=== PATIENT | male | born 1980 | race Caucasian/White ===

== ENCOUNTER 2019-08-04 12:56 | Outpatient (CLI) | payer OTHER ==
[2019-08-04 13:27] VITALS: BP 100/60
--- NOTE | 2019-08-04 13:27 | SLEEP CARE CONSULTATION ---
Information from patient questionnaire entered by Deann Walter. I have reviewed and concur with the information entered by Deann Walter. This document represents the service I personally performed and the decisions made by me, Guerline Espino MD, [facility]. History of Present Illness Reason for Visit: New patient Chief Complaint: reports: Snoring, Excessive daytime sleepiness (always tired, even after sleeping at night), Observed pauses in breathing, Fatigue Duration of Symptoms: 3-4 YEARS Usual bedtime: [id number] Time it takes to fall asleep: 10-20 Snores at night: Yes Observed to quit breathing while asleep: Yes Sleeps alone due to snoring: No Number of times waking at night: 1-2 Reasons for waking at night: reports: Snoring, Bathroom, Other (RECENTLY, BABY) Toss, Turn, or Twitch while sleeping: No Recalls having dreams: Yes (SOMETIMES) Usually gets out of bed at: 0530 WEEKDAY [id number] WEEKEND Feels refreshed in the morning: No Morning headache: Yes (RARELY) Sleepy or fatigued during the day: Yes Ever fallen asleep while driving: Yes (DOZED OFF) Takes day naps: Yes (RARELY) Dreams during day naps: No Prior sleep studies: No Additional HPI information: I had the pleasure of seeing Mr. Dobbs today regarding the possibility of him having a sleep disorder. As you know, he is a 38 year old gentleman who complains of loud snore, observed apneas, unrefreshed sleep, persistent fatigue, and excessive daytime sleepiness. He has awakened occasionally because of his own snoring, choking, and having to gasp for air. He complains of excessive daytime sleepiness and has fallen asleep while driving. 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 Patient is and lives in [place]. Have you smoked in the past 12 months: Yes Cigarettes per day (20/pack): 15 (10-20) Years of smokin Quit date: 1997 Smoking Pack Years: 6.3 Alcohol use: Yes Alcohol amount and frequency: 1-2 DRINKS, 1-2 NIGHTS/WEEK Caffeine use: Yes Caffeine amount and frequency: 1-2 CUPS COFFEE/MORNING Family History Family history of sleep disordered breathing: No Allergies and Home Medications Drug allergies reviewed: Yes Home medication list reviewed: Yes Review of Systems Cardiovascular: denies: high blood pressure, palpitations, chest pain, irregular heart rate or pulse, leg or foot swelling, have to sleep sitting up, other Respiratory: denies: shortness of breath, wheeze, sputum production, chronic cough, other Gastrointestinal: denies: heartburn, difficulty swallowing, nausea, vomitting, diarrhea, abdominal pain, other Urinary: denies: incontinence, frequency, urgency, impotence, other Neurological: denies: headaches, seizure, head trauma, disorientation, speech dysfunction, gait or balance problems, fainting or unconsciousness, other Psychiatric: denies: Attention Deficit Hyperactivity, anxiety, depression, mood disorder, claustrophobia, other Ear/Nose/Throat: reports: nasal congestion, wisdom teeth removed Endocrine: denies: thyroid disease, history of goiter, sluggishness, too hot or cold, excessive thirst, increased appetite, increased urination, unexplained weakness, other Musculoskeletal: denies: joint pain, neck pain, back pain, joint swelling, muscle pain or cramping, mobility problems, other Immunologic: denies: sneezing, rash, itching, allergies to food or environment, other Physical Exam Vital signs obtained and entered by: Dr. Espino Blood Pressure: 100/60 Heart Rate: 66 O2 Saturation: 99 Height: 5 ft 7 in Weight (kg): 180 lb Body Mass Index: 28.1 BMI Classification: Overweight Neck circumference: 16 Mood/affect: normal HEENT: No craniofacial malformation Nostrils: patent to airflow Turbinates: normal Septum: midline Mouth and throat: narrow oropharynx Soft palate: long Hard palate: normal Uvula: normal Uvula visualization: 50% Mallampati Class II Tongue: normal in size Tonsils: small Chin and jaw: normal size and position Neck: normal w/o lymphadenopathy or thyromegaly Heart: regular rate and rhythm Lungs: clear bilaterally Abdomen: soft, non-tender Extremities: no edema or clubbing Neurologic: intact, no focal deficits Impression and Plan IMPRESSION: 1. Obstructive Sleep Apnea-Hypopnea Syndrome, as suggested by history of loud and irregular snoring, observed cessation of breath while asleep, frequent awakenings during the night, unrefreshed sleep, cognitive impairment, and daytime hypersomnolence. Narrow oropharynx and obesity are common predisposing factors for obstructive sleep apnea-hypopnea syndrome. Pathophysiology of sleep-disordered breathing was discussed. I recommend proceeding to polysomnography to confirm the diagnosis and to assess severity. If he has significant sleep disordered breathing, a manual CPAP titration study will also be performed to find the optimal treatment pressure. I informed the patient of what the sleep studies involve and after some discussion, he agreed to proceed. Plan: 1. Schedule polysomnography + manual CPAP titration study and return in 1 to 2 weeks after the study to discuss result and initiate therapy. 2. Avoid long distance driving or when feeling sleepy. 3. Avoid alcohol, sedative and muscle relaxant around bedtime. 4. Attempt to lose some weight. I spent 100% of this 15 minute visit face to face with the patient with greater than 50% of this was spent time counseling the patient and coordination of care.
== END 2019-08-04 12:57 | disposition home or self-care (01) ==
LOC: SC 12:56
PROVIDERS: ATTEND Internal Medicine Pulmonary Disease
DX: R06.83 Snoring (principal); R06.81 Apnea, not elsewhere classified; G47.8 Other sleep disorders; R41.89 Other symptoms and signs involving cognitive functions and awareness; G47.10 Hypersomnia, unspecified
CPT/HCPCS: 99203; 99212

== ENCOUNTER 2019-08-25 19:33 | Outpatient (CLI) | payer OTHER | END 2019-08-25 19:34 | disposition home or self-care (01) | LOC: SC 19:33 | PROVIDERS: ATTEND Internal Medicine Pulmonary Disease | DX: G47.33 Obstructive sleep apnea (adult) (pediatric) (principal) | CPT/HCPCS: 95810 ==

== ENCOUNTER 2019-09-21 12:52 | Outpatient (CLI) | payer OTHER ==
[2019-09-21 13:49] VITALS: BP 112/64
--- NOTE | 2019-09-21 13:49 | SLEEP CARE CONSULTATION ---
Information from patient questionnaire entered by Pam Hodge. I have reviewed and concur with the information entered by Pam Hodge. This document represents the service I personally performed and the decisions made by me, Angle Leung, RN, MSN, MEDIA/INSTRUCTIONAL DESIGNER. History of Present Illness Initial [place] Sleepiness Scale score: 7 Current [place] Sleepiness Scale score: 9 Additional HPI information: DAVID PAULA returns for follow up of the recently performed polysomnography and informed of findings. I explained the pathophysiology behind obstructive sleep apnea. We then spent quite a bit of time discussing different treatment options. For mild obstructive sleep apnea, surgery and oral appliance are alternatives to nasal CPAP therapy but in moderate or severe cases, nasal CPAP is the most effective and reliable treatment. I answered his many questions about differences in therapy. Because apnea is primarily in supine position, then positional management therapy could be effective. Methods discussed such as positioning with pillows, using a T-shirt with tennis balls in the back, and shown commercial products that have a pillow format on back to prevent supine sleep. I reviewed the impact of weight changes on sleep apnea and strongly recommended losing weight. After some discussion, the patient opted to go with the nasal CPAP therapy. Nasal autoCPAP set at [id number] will be ordered with rationale explained. A manual titration study will be ordered if unable to find optimal pressure with office adjustments. I explained how CPAP machine works with sample devices Respironics Dreamstation and ResMed [id number] and what to expect when using the machine. Using CPAP every night in order to get used to it was emphasized. Patient advised to put CPAP mask on before getting into bed so as not to fall asleep without CPAP. To assist acclimation to CPAP use, it could also be used for a short time during day while reading or watching TV. The patient was instructed to call the CPAP supplier to discuss any mechanical problem that may occur. If the mask given is uncomfortable or is difficult to keep on through the night even with adjustment, contact the CPAP supplier as many will replace with another mask style if notified before 30 days. If snoring or perceives is not getting enough air or too much air from the machine, notify this office. [facility] patient education PAP tips reviewed and given to patient. He prefers the Respironics device. Patient counseled not drink alcohol less than 4 hours before bedtime as it can increase snoring and apnea. Patient was cautioned about risks of drowsy driving until sleepiness symptoms resolve. Patient denies drowsy driving. [facility] patient education on snoring and sleep apnea given and reviewed. Sleep Study - Polysomnography Polysomnography findings: The quality of the study is good. The patient had normal sleep efficiency. Except for mild sleep fragmentation, the sleep architecture was normal. Respiratory monitoring showed mild obstructive sleep apneahypopnea (AHI = 5.4) associated with frequent arousals, oxyhemoglobin desaturation and mild hypoxia (celina oxygen saturation of 87%). The slept mostly in non-supine positions (supine AHI = 16.7; non-supine = 4.65). Snore was light to loud in intensity. There was no significant periodic leg movement of sleep. Cardiac rhythm was normal sinus rhythm without significant arrhythmia. No abnormal behavior (parasomnia) observed during the night. Allergies and Home Medications Known drug allergies: No Home medication list reviewed: No (no meds) Review of Systems Review of systems same as previous: No (vasectomy) Physical Exam Blood Pressure: 112/64 Cuff size: long Heart Rate: 68 O2 Saturation: 98 Height: 5 ft 7 in Weight: 189 lb 6.4 oz (with boots and fatigues ) Body Mass Index: 29.6 BMI Classification: Overweight Impression and Plan * 1. Obstructive sleep apnea- hypopnea syndrome,mild, with lowest oxygen saturation of 87%. Possibly this is the cause of the patients symptoms of unrefreshed sleep, and excessive daytime sleepiness. As mentioned above, the patient will be started on nasal autoCPAP therapy with pressure set at 4-15 cmH2 O. A manual titration study will be completed if unable to find optimal treatment pressure with office adjustments. Compliance guidelines also reviewed. A copy of compliance guidelines will be given for reference at check out. Because the apnea is more severe supine, I instructed to avoid sleeping supine using pillow positioning until able to start CPAP use. Nasal auto CPAP therapy, pressure at 4-15 cm H2O - Respironics preferred * Attempt to lose weight. * Avoid alcohol consumption near bedtime. * Avoid supine sleep until using CPAP. * The patient is again cautioned about driving until sleepiness completely resolves. * Return one month after CPAP obtained. I will assess response to therapy and c ompliance at that time. I spent 100% of this 40 minute visit face to face with the patient with greater than 50% of this was spent time counseling the patient and coordination of care.
== END 2019-09-21 12:53 | disposition home or self-care (01) ==
LOC: SC 12:52
PROVIDERS: ATTEND Nurse Practitioner Family
DX: G47.33 Obstructive sleep apnea (adult) (pediatric) (principal)
CPT/HCPCS: 99212; 99214

== ENCOUNTER 2019-11-23 13:01 | Outpatient (CLI) | payer OTHER ==
--- NOTE | 2019-11-23 14:10 | SLEEP CARE CONSULTATION ---
Information from patient questionnaire entered by Pam Hodge. I have reviewed and concur with the information entered by Pam Hodge. This document represents the service I personally performed and the decisions made by me, Guerline Espino MD, [facility]. History of Present Illness Previous diagnosis: Mild, Obstructive Sleep Apnea-Hypopnea Syndrome AHI: 5.4 Reason for follow up: first compliance Equipment type: CPAP Equipment obtained from: [employer] Mask style: Full face HPI additional information: HPI: Mr. Dobbs returned today for follow up of nasal CPAP therapy. He was diagnosed to have mild obstructive sleep apnea-hypopnea syndrome (AHI was 5.4). The patient wears a full face mask by [employer] (he did not have a manual CPAP/BiPAP titration study). He reports using the device only occasionally because the mask hurts his nose. The compliance report shows usage in 15 nights out of the past 30 nights, averaging 3.1 hours a night. The > 4 hour compliance rate for the past 30 days is 7%. He complained of no particular problem with the device such as soreness on the face, dry nose, epistaxis, nasal congestion or headache. He thinks that the pressure of 4 15 cmH2O is alright. When he could use the CPAP for more than 4 hours, he noticed improvement in his sleep quality, and that he woke up feeling fresher in the morning and more awake/alert during the day. [place] Sleepiness Scale score is 8. His notices no snore at all. The average residual AHI is 2.4; and average time in large leak per day is 0. The 90th percentile pressure is 5.8 cmH2O. Subjective Initial [place] Sleepiness Scale score: 7 Current [place] Sleepiness Scale score: 8 Allergies and Home Medications Drug allergies reviewed: Yes Home medication list reviewed: Yes Physical Exam Weight: 180 lb Impression and Plan IMPRESSION: 1. Obstructive Sleep Apnea-Hypopnea Syndrome, mild, with the patient having [id number] compliance due to poor mask fit. He reports some improvement on the treatment and would like to try it longer. I will order a manual CPAP/BiPAP titration study to find the optimal pressure setting and find a better mask for him. PLAN: 1. Continue with autoCPAP set at 4 - 15 cmH2O. 2. Schedule a manual CPAP/BiPAP titration study. 3. Return for follow up after the sleep study. I spent 100% of the 15 minute visit [id number] with the patient with greater than 50% of this was spent time counseling the patient and coordination of care.
== END 2019-11-23 13:02 | disposition home or self-care (01) ==
LOC: SC 13:01
PROVIDERS: ATTEND Internal Medicine Pulmonary Disease
DX: G47.33 Obstructive sleep apnea (adult) (pediatric) (principal)
CPT/HCPCS: 99212; 99213

== ENCOUNTER 2019-12-14 19:42 | Outpatient (CLI) | payer OTHER | END 2019-12-14 19:43 | disposition home or self-care (01) | LOC: SC 19:42 | PROVIDERS: ATTEND Internal Medicine Pulmonary Disease | DX: G47.33 Obstructive sleep apnea (adult) (pediatric) (principal) | CPT/HCPCS: 95811 ==

== ENCOUNTER 2019-12-28 10:52 | Outpatient (CLI) | payer OTHER ==
--- NOTE | 2019-12-28 12:18 | SLEEP CARE CONSULTATION ---
Information from patient questionnaire entered by Deann Walter. I have reviewed and concur with the information entered by Deann Walter. This document represents the service I personally performed and the decisions made by me, Guerline Espino MD, [facility]. History of Present Illness Previous diagnosis: Mild, Obstructive Sleep Apnea-Hypopnea Syndrome AHI: 5.4 Reason for follow up: with manual titration Equipment type: CPAP Equipment obtained from: [employer] Prior sleep studies: Yes HPI additional information: HPI: Mr. Dobbs returns for follow up of the sleep study (a manual CPAP titration study) he had on 12/14/19. The study showed that CPAP was initiated at 4 cmH2O and titrated up to CPAP at 6 cmH2O. CPAP at 6 cmH2O appeared to be optimal (AHI of 0 per hour on the pressure). There was supine REM sleep on the pressure. Oxygen saturation was normal throughout the night. Lower CPAP settings appeared adequate as well. The patient tolerated positive airway pressure therapy very well. The patients sleep efficiency was normal. The sleep architecture was relatively normal considering the first-night effect. There was no significant periodic leg movement of sleep. Cardiac rhythm was normal sinus rhythm without significant arrhythmia. No abnormal behavior (parasomnia) observed during the night. The patient was informed of these findings. I explained to him that the current pressure is too high. Presently his CPAP is set at 4 - 15 cmH2O. He told me that he has not been using the device much. CPAP Compliance Data - Data Reviewed with Patient Average duration of nightly device use: 2h 57m Compliance rate %: 5 Current pressure setting (cmH2O): 4-15 Humidity settin Heated hose settin Average residual AHI: 2.6 Average large leak: 0s Subjective Patient concerns: reports: air blowing in eyes, dry mouth, nose, throat Current pressure setting perceived as: comfortable Initial [place] Sleepiness Scale score: 7 Current [place] Sleepiness Scale score: 7 Allergies and Home Medications Drug allergies reviewed: Yes Home medication list reviewed: Yes Review of Systems Review of systems same as previous: Yes Physical Exam Height: 5 ft 7 in Weight: 180 lb Body Mass Index: 28.1 BMI Classification: Overweight Impression and Plan IMPRESSION: 1. Obstructive Sleep Apnea-Hypopnea Syndrome, mild, adequately controlled with low CPAP at 6 cmH2O. The patient is presently not using his CPAP because of upper respiratory congestion. I advised him to turn up the heated humidifier. He likes the Respironics Wisp nasal mask that we gave him and will tell [employer] not to send him the full face mask supplies. PLAN: 1. Reduce autoCPAP to 4 6 cmH2O. 2. Attempt to lose weight and avoid alcohol consumption near bedtime. 3. Try ResMed N30i mask 4. Return in six weeks for follow up. I will assess his response and compliance at that time. I spent 100% of this visit face to face with the patient with greater than 50% of this was spent time counseling the patient and coordination of care.
== END 2019-12-28 10:53 | disposition home or self-care (01) ==
LOC: SC 10:52
PROVIDERS: ATTEND Internal Medicine Pulmonary Disease
DX: G47.33 Obstructive sleep apnea (adult) (pediatric) (principal); E66.3 Overweight; Z68.28 Body mass index [BMI] 28.0-28.9, adult
CPT/HCPCS: 99212; 99213

== ENCOUNTER 2021-07-20 08:43 | Outpatient (CLI) | payer OTHER ==
--- NOTE | 2021-07-20 09:18 | SLEEP CARE CONSULTATION ---
Information from patient questionnaire entered by Pam Hodge. I have reviewed and concur with the information entered by Pam Hodge. This document represents the service I personally performed and the decisions made by , Eun Armando ARNP. History of Present Illness Service Date and Time: 07/20/2021 0843 Previous diagnosis: Mild, Obstructive Sleep Apnea-Hypopnea Syndrome AHI: 5.4 (in 2019) Reason for follow up: annual (last seen 05/2020) Equipment type: CPAP Equipment obtained from: [employer] (getting supplies as needed) Mask style: Nasal Mask brand: Respironics (Wisp) Backup mask available: Yes (Old mask) Last cushion change: 2+ months Prior sleep studies: Yes Year and Where: 2019 - [facility] HPI additional information: DAVID PAULA was diagnosed to have mild, AHI 5.4, obstructive sleep apnea- hypopnea syndrome and returned today for CPAP therapy annual follow-up. CPAP Compliance Data - Data Reviewed with Patient Average duration of nightly device use: 6 hr 2 min Compliance rate %: 77.2 (180 days) Current pressure setting (cmH2O): 4-6 Humidity settin Heated hose settin Average residual AHI: 1.7 Average large leak: 0 Subjective Missed days of use due to: reports: travel, other (Machine concerns) Patient concerns: reports: mask leak noise, nasal congestion, dry mouth, nose, throat, epistaxis (occasional). denies: aerophagia, mask discomfort, air blowing in eyes, condensation in mask/hose, other Observed to snore while using device: No Current pressure setting perceived as: comfortable (b) On therapy, patient: reports: sleeping better, awakening more refreshed, being more awake and alert during the day, more rested overall. denies: drowsiness while driving Initial [place] Sleepiness Scale score: 7 (in 2019) Current [place] Sleepiness Scale score: 8 Allergies and Home Medications Home medication list reviewed: Yes (Adderall, started in December) Review of Systems Review of systems same as previous: No (ADHD) Physical Exam Heart Rate: 68 O2 Saturation: 96 Height: 5 ft 7 in Weight: 182 lb Body Mass Index: 28.5 BMI Classification: Overweight Impression and Plan 1. Obstructive Sleep Apnea-Hypopnea Syndrome, mild, with good treatment compliance and good apnea control. On CPAP therapy, the patient has better sleep quality and is more rested overall. Patient stopped using his device about 2 weeks ago due to travel and because of concerns about the recall on his device. He has not registered his device. Patient was encouraged to register their device online with [employer] for the recall to see if their device is affected. If their device is affected they should start a claim. Patient denies any black particles seen in machine or hoses, any unusual odors coming from device. Patient has not experienced any physical symptoms such as upper airway irritation, headache, skin or eye irritation, asthma, nausea/vomiting, difficulty breathing or chest pain. Patient informed that they may use an inline CPAP filter that they can obtain online to reduce chance of any particles being inhaled or ingested. We discussed thoroughly the health risks of not using the CPAP versus continuing use with the filter in place. If patient is not able to sleep due to waking up choking, gasping for air or other respiratory distress that they may decide to continue using it until it is either replaced or repaired. Patient voiced understanding and agreement with plan. Patient encouraged to maintain a healthy weight and to lose weight if overweight. Patient's apnea severity and rationale for treatment to reduce apnea, improve sleep quality and reduce cardiovascular and cerebrovascular events was reviewed. * Patient will register his device with [employer] for recall * Change auto CPAP pressure to 5-7 cmH2O * Notify me if snoring with mask or feeling that the pressure is too much or too little * Attempt to lose weight * Call this office if any problems using CPAP * Return for follow up in 1 year, or sooner if concerns arise Counseling Topics: Spare mask, Weight loss health impact Visit Type: In Office Time Spent with Patient (minutes): 24 Provider Statement: I spent 100% of the Face to Face Visit with the patient with greater than 50% spent counseling the patient and coordination of care.
== END 2021-07-20 08:44 | disposition home or self-care (01) ==
LOC: SC 08:43
PROVIDERS: ATTEND Nurse Practitioner Family
DX: G47.33 Obstructive sleep apnea (adult) (pediatric) (principal)
CPT/HCPCS: 99212; 99213

== ENCOUNTER 2023-01-25 10:19 | Outpatient (CLI) | payer OTHER ==
--- NOTE | 2023-01-25 16:44 | MRI Report ---
PROCEDURE: SHOULDER WO - RT INDICATIONS: SHOULDER PAIN TECHNIQUE: Noncontrast oblique coronal T2 fast spin echo with fat saturation, oblique sagittal T1 spin echo and T2 fast spin echo with fat saturation, axial T1 spin echo and T2 fast spin echo with fat saturation t hrough the shoulder. COMPARISON: None. FINDINGS: Image quality: Excellent. Rotator cuff: Low to moderate grade articular and bursal surface partial-thickness tear involving dis lyle supraspinatus at its insertion on humeral head is seen extending to muscular tendinous junction. Tendinosis and low-grade articular surface partial-thickness tear involving distal infraspinatus is s een. Low-grade intrasubstance partial thickness tear involving distal subscapularis is noted. No full -thickness rotator cuff tendon rupture.. No significant rotator cuff muscle atrophy on sagittal imag es. Bones and bursae: Moderate acromioclavicular joint osteoarthritic changes are seen with joint space n arrowing, subchondral sclerosis and edema and prominent downward osteophyte formation depressing on m usculotendinous junction of supraspinatus. Mild glenohumeral joint osteoarthritic changes are seen. N o fracture or dislocation. Nonspecific subcortical cystic areas are seen scattered in anterior, later al and posterior aspect of humeral head near rotator cuff tendon insertion. There is small to moderat e amount of joint effusion and subacromial subdeltoid bursal fluid. No gross loose bodies. Capsule and soft tissues: There is subtle signal abnormality and contour irregularity involving super ior anterior labrum at 12 to 1:00 position suggestive of superior anterior labral tear. The long head of the biceps tendon appears thickened with intrasubstance T2 hyperintense signal. The rotator inte rval appears normal, without fibrosis. The coracohumeral ligament is normal in thickness. IMPRESSION: 1. Low to moderate grade articular and bursal surface partial-thickness tear involving distal suprasp inatus extending to muscular tendinous junction. Low-grade articular surface partial-thickness tear i nvolving distal infraspinatus. Low-grade intrasubstance partial thickness tear involving distal subsc apularis. No full-thickness rotator cuff tendon rupture. No significant rotator cuff muscle atrophy. 2. 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 No fra cture or dislocation. Nonspecific subcortical cystic areas in humeral head near rotator cuff tendon i nsertion. Small to moderate amount of joint effusion and subacromial subdeltoid bursal fluid. No rivka s loose bodies. 3. Suggestion of subtle superior anterior labral tear at 12 to 1:00 position. 4. Low to moderate grade partial thickness tear involving proximal long head of biceps tendon. Reviewed by: Krish Steen MD on 01/25/2023 4:43 PM PST Approved by: Krish Steen MD on 01/25/2023 4:43 PM PST Station ID: [id number]
== END 2023-01-25 10:20 | disposition home or self-care (01) ==
LOC: DI 10:19
PROVIDERS: ATTEND Student in an Organized Health Care Education/Training Program
DX: M75.111 Incomplete rotator cuff tear or rupture of right shoulder, not specified as traumatic (principal); M19.011 Primary osteoarthritis, right shoulder; S46.111A Strain of muscle, fascia and tendon of long head of biceps, right arm, initial encounter

== ENCOUNTER 2023-04-15 12:24 | Outpatient (CLI) | payer OTHER ==
[~2023-04-15 12:24] MED LIST: BUPIVACAINE 0.5% PF 10 ML VIAL ONE; LIDOCAINE-MPF 1% 5 ML VIAL ONE; TRIAMCINOLONE 40 MG/ML VIAL ONE; iohexoL-240 10 ML VIAL IVP ONE
[2023-04-15] MEDS ORDERED: BUPIVACAINE 0.5% PF 10 ML VIAL IM ONE (13:19)
[2023-04-15] MEDS ORDERED: iohexoL-240 10 ML VIAL IVP ONE (13:20)
[2023-04-15] MEDS ORDERED: LIDOCAINE-MPF 1% 5 ML VIAL TD ONE (13:20)
[2023-04-15] MEDS ORDERED: TRIAMCINOLONE 40 MG/ML VIAL IM ONE (13:21)
--- NOTE | 2023-04-15 13:41 | XRAY Report ---
PROCEDURE: Inj/Aspiration Major Joint INDICATIONS: PAIN IN RIGHT SHOULDER CONTRAST: Intra-articular FLUORO TIME: 01/25/2023 TECHNIQUE: The indications, alternatives, benefits, risks, and complications of the procedure were explained to the patient. Written informed consent was obtained and placed in the chart. The patient was placed in an appropriate position on the fluoroscopy table, and a site was chosen for percutaneous access un killian fluoroscopic guidance. Local anesthetic was administered using a 1% lidocaine solution. A hypod ermic or spinal needle was then used to access the symptomatic joint. Intra-articular location of th e needle tip was confirmed by injecting a small amount of contrast, followed by steroid administratio n. The needle was then withdrawn, and a bandage applied to the puncture site. FINDINGS: Joint injected: Right glenohumeral Medications injected: 1 mL of 40 mg/mL Kenalog and 0.5% Ropivacaine mixture. Complications: None. IMPRESSION: Successful fluoroscopically guided administration of steroid and anaesthetic solution into the joint joint. Reviewed by: Jose Chandler MD on 04/15/2023 1:40 PM PDT Approved by: Jose Chandler MD on 04/15/2023 1:40 PM PDT Station ID: [id number]
== END 2023-04-15 12:25 | disposition home or self-care (01) ==
LOC: DI 12:24
PROVIDERS: ATTEND Orthopaedic Surgery
DX: M25.511 Pain in right shoulder (principal)
CPT/HCPCS: 20610; 77002; Q9966

== ENCOUNTER 2023-04-22 08:13 | Outpatient (CLI) | payer OTHER ==
--- NOTE | 2023-04-22 09:34 | MRI Report ---
PROCEDURE: BRAIN WO INDICATIONS: HEADACHE TECHNIQUE: Noncontrast axial T1 spin echo, axial T2 fast spin echo, sagittal and axial FLAIR, coronal T2 fast sp in echo, axial gradient echo, axial diffusion and ADC through the brain. COMPARISON: None. FINDINGS: Image quality: Excellent. CSF Spaces: Basal cisterns are patent. No extra-axial fluid collections. Ventricles are normal in size and shape. Brain: No intracranial masses or hemorrhage. Dias/white matter interface is normal. Brainstem appe ars normal. Diffusion-weighted images demonstrate no acute ischemic insult. No chronic ischemic ins ults. Normal intravascular flow voids are present. Skull and face: Calvarium has normal marrow signal. Orbits appear normal. Sinuses: Sinuses demonstrate minimal trace mastoid mucosal thickening. Mild fluid is present within the right mastoid air cells. IMPRESSION: 1. No acute intracranial process. Reviewed by: Connie Laurent MD on 04/22/2023 9:32 AM PDT Approved by: Connie Laurent MD on 04/22/2023 9:32 AM PDT Station ID: [id number]
== END 2023-04-22 08:14 | disposition home or self-care (01) ==
LOC: DI 08:13
PROVIDERS: ATTEND Preventive Medicine Aerospace Medicine
DX: R51.9 Headache, unspecified (principal)